=== PATIENT | female | born 1995 | race Caucasian/White ===

== ENCOUNTER 2023-10-23 10:02 | Outpatient (OUT) | payer OTHER, SELFPAY ==
--- NOTE | 2023-10-23 10:05 | US_ITS ---
[address] [address] Patient Name: JULISSA XIE MRN: [id number] date: 1995 Sex: F Assigned Patient Location: [facility] Current Patient Location: [facility] Accession/Order Number: [id number] Exam Date: 10/23/2023 10:06 Report Date: 10/23/2023 10:47 At the request of: ENMA MARLEY Procedure: US OB transvaginal EXAMINATION: US OB transvaginal HISTORY: MISSED MENSES COMPARISON: No relevant comparison available. FINDINGS: Transvaginal images Chavez intrauterine gestation Gestational sac: 2.21 cm, 6 weeks 6 days CRL: 1.1 cm, 7 weeks 1 day Yolk sac: 3.2 mm Heart rate: 141 beats minute Cervix: Closed, 4.2 cm The uterus is normal, anteverted, anteflexed The ovaries are normal. Left corpus luteal cyst Clinical age: Unknown Ultrasound age: 7 weeks 1 day Ultrasound ASHLEY: 06/09/2024 US/US OB transvaginal IMPRESSION: Chavez intrauterine gestation measuring 7 weeks 1 day Electronically authenticated by: MIKEY MC Date: 10/23/2023 10:47
== END 2023-10-23 10:03 | disposition home or self-care (01) ==
PROVIDERS: Visit Provider Obstetrics & Gynecology
DX: Z34.91 Encounter for supervision of normal pregnancy, unspecified, first trimester (principal); Z3A.01 Less than 8 weeks gestation of pregnancy; N92.6 Irregular menstruation, unspecified
CPT/HCPCS: 76817